=== PATIENT | female | born 1980 | race Hispanic/Latino ===

== ENCOUNTER → 2016-06-15 | Outpatient (CLI) | payer OTHER ==
[~2016-06-15] MED LIST: CONRAY-43 43% 50ML VIAL (Q9960) As Ordered ONE; LIDOCAINE 1% MDV 20ML VIAL As Ordered ONE; TRIAMCINOLONE ACETONIDE SUSP 40 MG/ML VIAL (J3301) As Ordered ONE
--- NOTE | 2016-06-15 17:29 | REP ---
Right hip injection The procedure was performed under the direct supervision of Dr. Gómez. The benefits and risks including but not limited to pain infection and bleeding and anaphylaxis were explained to the patient and informed consent was obtained. The right femoral neck was localized using fluoroscopic guidance. The skin was prepped and draped in a sterile fashion. 1% lidocaine was used as a local anesthetic. Using fluoroscopic guidance a 22-gauge spinal needle was inserted and advanced to the femoral neck. 0.5 ml of Conray 43 was injected to verify placement. 10 ml of a solution containing 9 ml of 1% Xylocaine and 1 ml of Kenalog 40 mg was injected. The needle was then removed. The patient tolerated the procedure well and there were no immediate complications. 1 second of fluoro time was utilized for this procedure. Reviewed by SERINA Reyez 06/15/2016 04:28 PSigned by Delmar Gómez MD 06/15/2016 05:19 P
== END ==
LOC: M RADPRO 10:50
PROVIDERS: ATTEND Physician Assistant Medical
DX: M25.551 Pain in right hip (principal)
CPT/HCPCS: 20610; 77002; J3301; Q9960

== ENCOUNTER → 2017-08-18 | Outpatient (CLI) | payer OTHER ==
[~2017-08-18] MED LIST changes: -CONRAY-43 43% 50ML VIAL (Q9960) As Ordered ONE; +ISOVUE-370 76% 100ML VIAL (Q9967) As Ordered; -LIDOCAINE 1% MDV 20ML VIAL As Ordered ONE; -TRIAMCINOLONE ACETONIDE SUSP 40 MG/ML VIAL (J3301) As Ordered ONE
== END ==
LOC: M RADPRO 11:10
DX: R10.9 Unspecified abdominal pain (principal); N97.1 Female infertility of tubal origin
CPT/HCPCS: 58340

== ENCOUNTER 2017-10-11 08:49 | Day surgery (SDC) | payer OTHER ==
[~2017-10-11 08:49] MED LIST changes: -ISOVUE-370 76% 100ML VIAL (Q9967) As Ordered; +LR 1,000 ML IV
[2017-10-11 09:31] LABS: HEMATOCRIT 39.8 % (36.0-47.0); MEAN CORPUSCULAR HEMOGLOBIN 26.5 pg (27.0-33.0); MEAN CORPUSCULAR HGB CONC 32.7 g/dl (32.0-36.5); MEAN CORPUSCULAR VOLUME 81.1 fl (80.0-96.0); PLATELET COUNT, AUTOMATED 184 10^3/uL (150-450); RED BLOOD COUNT 4.91 10^6/uL (4.00-5.40); WHITE BLOOD COUNT 9.1 10^3/uL (4.0-10.0)
[2017-10-11 09:40] LABS: CONTROL LINE HCG INT CTR LINE PRESENT; HCG, SERUM QUALITATIVE NEGATIVE (NEGATIVE)
[2017-10-11] MEDS ORDERED: PROPOFOL 200 MG/20 ML VIAL As Ordered (10:03)
[2017-10-11] MEDS ORDERED: MIDAZOLAM INJ 2 MG/2 ML VIAL (J2250) As Ordered (10:03)
[2017-10-11] MEDS ORDERED: fentaNYL 100 MCG/2 ML INJECTION (J3010) As Ordered (10:04)
[2017-10-11] MEDS ORDERED: ONDANSETRON 4MG/2ML VIAL (J2405) As Ordered (11:00)
[2017-10-11] MEDS ORDERED: dexameTHASONE 4 MG/ML 1ML VIAL (J1100) As Ordered (11:00)
[2017-10-11] MEDS ORDERED: PHENYLephrine HCL 500 MCG/5 ML (100MCG/ML) SYRINGE (J2370) As Ordered (11:04)
[2017-10-11] MEDS ORDERED: KETOROLAC 60 MG/2 ML VIAL (J1885) As Ordered (11:17)
[2017-10-11] MEDS ORDERED: PERCOCET 5MG/325MG TAB As Ordered (11:39)
[2017-10-11] MEDS ORDERED: fentaNYL 100 MCG/2 ML INJECTION (J3010) IV (11:45)
[2017-10-11] MEDS ORDERED: LR 1,000 ML IV (11:45)
[2017-10-11] MEDS: ONDANSETRON 4MG/2ML VIAL (J2405) IV (11:55)
[2017-10-11] MEDS: PERCOCET 5MG/325MG TAB PO (11:55)
== END 2017-10-11 13:20 | disposition home or self-care (01) ==
LOC: M SDC 08:49
DX: N92.0 Excessive and frequent menstruation with regular cycle (principal); N94.6 Dysmenorrhea, unspecified; F17.210 Nicotine dependence, cigarettes, uncomplicated
CPT/HCPCS: 58563

== ENCOUNTER → 2019-01-01 | Outpatient (CLI) | payer OTHER ==
[~2019-01-01] MED LIST changes: +AMOX875T PO; +CYAN500T8 PO; -LR 1,000 ML IV; +VITA100067 PO
--- NOTE | 2019-01-01 16:50 | REP ---
Digital diagnostic bilateral mammography CAD and focused right breast sonography. History: History of right breast lump inferiorly 6 o'clock. The patient felt that it looked like an ingrown hair and is now healing. The lump is no longer present. No comparison mammography. Mammographic findings: Breast parenchyma is heterogeneously dense in a pattern which may inhibit the sensitivity of mammography. There are normal-appearing axillary lymph nodes bilaterally. No dominant density is seen. No micro calcific cluster or worrisome skin changes appreciated. Sonographic findings: The right breast is scanned from 5 o'clock to 7 o'clock in the area of the previous palpable abnormality. Heterogeneous fibroglandular texture is seen. No cyst or mass is observed. No acoustic shadowing is seen. Fashion: BIRADS category II benign findings. Repeat screening mammography recommended 1 year. BIRADS 2: BI-RADS/ACR category 2 mammogram. Benign Findings. This mammogram was interpreted with the aid of an FDA-approved computer-aided detection system. The patient states she had a clinical breast exam in November 2018. This patient's estimated Tyrer-Cuzick lifetime risk assessment for the breast cancer is 13.4 %. Electronically Signed by Jeb Rivas MD 01/01/2019 05:13 P
== END ==
LOC: M RAD 11:28
PROVIDERS: ATTEND Family Medicine
DX: Z12.31 Encounter for screening mammogram for malignant neoplasm of breast (principal)